=== PATIENT | female | born 1945 | race Two or more races ===

== ENCOUNTER 2022-03-30 01:10 | Emergency (ER) | payer OTHER, MEDICAID ==
[~2022-03-30] VITALS: Ht 152.4 cm; Wt 68.0 kg
[~2022-03-30 01:10] MED LIST: ACET325S14 RE; ALEN70TA74 PO; ASPI81CH49 PO; ATOR20TA PO; ATOR20TA50 PO; CARV6.2551 PO; CLOP75TA70 PO; ERGO50003 PO; FOLITAB45 OR; ISOS1TAB28 PO; ISOS30TA17 PO; LEVO50TA7 PO; LISI-275 PO; MULTLIQ38 OR; SEVE800T8 PO; [UNRECOGNIZED DRUG - CODE] PO
[2022-03-30 01:33] VITALS: BP 153/73
== END 2022-03-30 01:37 | disposition left against medical advice (07) ==
LOC: EDBD 01:10 → ER 01:11
DX: G44.309 Post-traumatic headache, unspecified, not intractable (principal); I25.10 Atherosclerotic heart disease of native coronary artery without angina pectoris; E78.5 Hyperlipidemia, unspecified; I12.0 Hypertensive chronic kidney disease with stage 5 chronic kidney disease or end stage renal disease; N18.6 End stage renal disease; I25.2 Old myocardial infarction; Z79.82 Long term (current) use of aspirin; Z79.899 Other long term (current) drug therapy; W19.XXXA Unspecified fall, initial encounter; Y93.89 Activity, other specified; Y92.89 Other specified places as the place of occurrence of the external cause; Y99.8 Other external cause status
CPT/HCPCS: 93005